=== PATIENT | male | born 1970 | race Hispanic/Latino ===

== ENCOUNTER 2017-05-08 16:04 | Emergency (ER) | payer OTHER ==
[2017-05-08 16:05] VITALS: BMI 25.0
[2017-05-08 16:14] VITALS: RESP 18; TEMP 98.1
--- NOTE | 2017-05-08 16:43 | ED PDOC ---
Arrival/HPI - General Chief Complaint: Upper Extremity Problem/Injury Time Seen by Provider: 05/08/17 16:30 Historian: Patient - History of Present Illness Time/Duration: 1 week Symptom Onset: Gradual Symptom Course: Worsening Quality: Aching Severity Level: Moderate Activities at Onset: Rest Associated Symptoms (Text): 05/08/17 16:40 Patient complains of approximately a one-week history of left triceps pain along with numbness of the bilateral upper extremities which radiates into all fingers and thumb bilaterally. There is no lower extremity pain or numbness or weakness. There is no upper extremity weakness. There is some left trapezius pain. He also complains of an intermittent headache. No difficulty with ADLs. He denies any injury or trauma. No chest pain palpitations or dyspnea. No nausea or vomiting. No diaphoresis. He has never experienced this previously. Past Medical History - Cardiac Other/Comment: low Blood pressure - Pulmonary Hx Respiratory Disorders: No - Neurological Hx Neurological Disorder: No - HEENT Hx HEENT Disorder: No - Renal Hx Renal Disorder: No - Endocrine/Metabolic Hx Endocrine Disorders: No - Hematological/Oncological Hx Blood Disorders: No - Integumentary Hx Dermatological Disorder: No - Gastrointestinal Hx Gastroesophageal Reflux: Yes - Genitourinary/Gynecological Hx Genitourinary Disorders: No - Psychiatric Hx Psychophysiologic Disorder: No Hx Substance Use: No - Past Surgical History Past Surgical History: No Previous - Surgical History Hx Cataract Extraction: Yes Family/Social History - Physician Review Nursing Documentation Reviewed: Yes Family/Social History: Unknown Family HX Smoking Status: Former Smoker (Quit smoking 6 months ago) Hx Alcohol Use: Yes Frequency of alcohol use: Daily Hx Substance Use: No Allergies/Home Meds Allergies/Adverse Reactions: Allergies sulfamethoxazole [From Bactrim] Allergy (Intermediate, Verified 05/08/17 16:15) RASH amoxicillin Allergy (Verified 05/08/17 16:15) SHORTNESS OF BREATH Penicillins Allergy (Verified 05/08/17 16:41) SHORTNESS OF BREATH trimethoprim [From Bactrim] Allergy (Verified 05/08/17 16:15) RASH Review of Systems - Physician Review All systems were reviewed & negative as marked: Yes - Review of Systems Constitutional: Normal ENT: Normal Respiratory: Normal Cardiovascular: Normal Gastrointestinal: Normal Neurological: Headache. absent: Dizziness, Focal Weakness, Gait Changes, Speech Changes, Facial Droop, Disequilibrium, Seizure Physical Exam Vital Signs Temp Pulse Resp BP Pulse Ox 05/08/17 19:13 60 18 107/74 100 05/08/17 16:09 98.1 F 71 18 157/102 H 99 Temperature: Afebrile Blood Pressure: Hypertensive Pulse: Regular Respiratory Rate: Normal Appearance: Positive for: Well-Appearing, Non-Toxic, Comfortable Pain Distress: None Mental Status: Positive for: Alert and Oriented X 3 - Systems Exam Head: Present: Atraumatic, Normocephalic Pupils: Present: PERRL Extroacular Muscles: Present: EOMI Conjunctiva: Present: Normal Mouth: Present: Moist Mucous Membranes Pharnyx: No: ERYTHEMA, EXUDATE, TONSILS ENLARGED Neck: Present: Normal Range of Motion. No: Meningeal Signs, MIDLINE TENDERNESS , Paraspinal Tenderness Respiratory/Chest: Present: Clear to Auscultation, Good Air Exchange. No: Respiratory Distress, Accessory Muscle Use Cardiovascular: Present: Regular Rate and Rhythm, Normal S1, S2. No: Murmurs Abdomen: Present: Normal Bowel Sounds. No: Tenderness, Distention, Peritoneal Signs, Rebound, Guarding Back: Present: Normal Inspection. No: CVA Tenderness, Midline Tenderness, Paraspinal Tenderness Upper Extremity: Present: Normal Inspection, Normal ROM, NORMAL PULSES, Neurovascularly Intact, Capillary Refill < 2s, Norm 2-Pt Discrimination. No: Cyanosis, Edema, Tenderness, Swelling, Erythema, Temperature Abnormalties, Deformity Lower Extremity: Present: Normal Inspection. No: Edema Neurological: Present: GCS=15, CN II-XII Intact, Speech Normal, Motor Func Grossly Intact, Normal Sensory Function, Normal Cerebellar Funct, Gait Normal Skin: Present: Warm, Dry, Normal Color. No: Rashes Psychiatric: Present: Alert, Oriented x 3, Normal Insight, Normal Concentration Medical Decision Making ED Course and Treatment: 05/08/17 18:14 EKG shows sinus bradycardia rate approximately [address] or T-wave changes - Lab Interpretations Lab Results: 05/08/17 16:45 05/08/17 16:45 Lab Results 05/08/17 16:45: Sodium 138, Potassium 4.1, Chloride 102, Carbon Dioxide 25, Anion Gap 15, BUN 16, Creatinine 1.0, Est GFR ( Amer) > 60, Est GFR (Non- Af Amer) > 60, Random Glucose 91, Calcium 9.5, Total Bilirubin 0.4, AST 30, ALT 43, Alkaline Phosphatase 76, Lactate Dehydrogenase 334, Total Creatine Kinase 69 , Troponin I < 0.01, Total Protein 6.9, Albumin 4.7, Globulin 2.2, Albumin/ Globulin Ratio 2.1 H 05/08/17 16:45: WBC 8.3, RBC 4.53, Hgb 14.2, Hct 41.0 L, MCV 90.5, MCH 31.3, MCHC 34.6, RDW 13.6, Plt Count 225, MPV 9.2, Gran % 51.4, Lymph % (Auto) 36.8 H , [place] % (Auto) 9.7 H, Eos % (Auto) 1.6, Baso % (Auto) 0.5, Gran # 4.25, Lymph # 3.0, [place] # 0.8 H, Eos # 0.1, Baso # 0.04 - RAD Interpretation Radiology Orders: 05/08/17 16:45 CERVICAL SPINE W/O CONTRAST [CT] Stat HEAD W/O CONTRAST [CT] Stat CHEST PORTABLE [RAD] Stat CT scan of the head as read by the radiologist shows no acute findings. Chest x- ray is read by the radiologist shows atelectasis. Cervical spine shows HNP Team Psychologist: Radiologist Disposition/Present on Arrival - Present on Arrival Any Indicators Present on Arrival: No History of DVT/PE: No History of Uncontrolled Diabetes: No Urinary Catheter: No History of Decub. Ulcer: No History Surgical Site Infection Following: None - Disposition Have Diagnosis and Disposition been Completed?: Yes Diagnosis: Cervical radiculopathy Disposition: HOME/ ROUTINE Disposition Time: 19:13 Patient Plan: Discharge Condition: GOOD Discharge Instructions (ExitCare): Cervical Radiculopathy (ED) Additional Instructions: Hypertension check with PMD. Must follow-up with PMD for neurology referral. Follow-up in the ER as needed. Prescriptions: Dexamethasone [Decadron] 4 mg PO DAILY #5 tab Cyclobenzaprine [Flexeril] 5 mg PO Q8 #15 tab Tramadol HCl [Ultram] 50 mg PO Q6 PRN #20 tab PRN Reason: Pain Referrals: Joel Naidu MD [Primary Care Provider] - Follow up with primary Forms: [employer] (Turkish), WORK NOTE
[2017-05-08 17:13] LABS: ALB/GLOB RATIO 2.1 (1.1-1.8); ALKALINE PHOSPHATASE 76 U/L (38-133); ALT/SGPT 43 U/L (7-56); AST/SGOT 30 U/L (15-59); BILIRUBIN,TOTAL 0.4 mg/dL (0.2-1.3); BLOOD UREA NITROGEN 16 mg/dL (7-21); CALCIUM 9.5 mg/dL (8.4-10.5); CARBON DIOXIDE 25 mmol/L (21-33); CHLORIDE 102 mmol/L (98-107); GFR AFRICAN-AMERICAN > 60; GLUCOSE,RANDOM 91 mg/dL (70-110); POTASSIUM 4.1 mmol/L (3.6-5.0); SODIUM 138 mmol/L (132-148); TOTAL PROTEIN 6.9 g/dL (5.8-8.3)
[2017-05-08 17:19] LABS: BASO # 0.04 K/mm3 (0.0-2.0); BASO % 0.5 % (0.0-3.0); EOS # 0.1 (0.0-0.7); EOS % 1.6 % (1.5-5.0); GRAN # 4.25 (1.4-6.5); GRAN % 51.4 % (50.0-68.0); LYMPH % 36.8 % (22.0-35.0); MEAN CELL VOLUME 90.5 fl (80.0-105.0); MEAN CORPUSCULAR HEMOGLOBIN 31.3 pg (25.0-35.0); MEAN CORPUSCULAR HGB CONC 34.6 g/dl (31.0-37.0); MEAN PLATELET VOLUME 9.2 fl (7.0-11.0); MONO # 0.8 (0.1-0.6); MONO % 9.7 % (1.0-6.0); RED CELL DISTRIBUTION WIDTH 13.6 % (11.5-14.5); WHITE BLOOD COUNT 8.3 10^3/ul (4.5-11.0)
[2017-05-08 17:25] LABS: TROPONIN I < 0.01 ng/mL
--- NOTE | 2017-05-08 17:38 | CT ---
PROCEDURE: CT HEAD WITHOUT CONTRAST. HISTORY: Headache COMPARISON: None available. TECHNIQUE: Axial computed tomography images were obtained through the head/brain without intravenous contrast. Radiation dose: Total exam DLP = 822.62 mGy-cm. This CT exam was performed using one or more of the following dose reduction techniques: Automated exposure control, adjustment of the mA and/or kV according to patient size, and/or use of iterative reconstruction technique. FINDINGS: HEMORRHAGE: No intracranial hemorrhage. BRAIN: [place]-white matter differentiation is preserved. There is no mass, mass effect or abnormal extra-axial fluid collection. VENTRICLES: The ventricles are normal in size, shape and configuration. CALVARIUM: The skull base and calvarium are normal. PARANASAL SINUSES: Predominantly clear. MASTOID AIR CELLS: Predominantly clear. OTHER FINDINGS: None. IMPRESSION: No acute intracranial abnormality.
--- NOTE | 2017-05-08 17:42 | RAD ---
HISTORY: pain COMPARISON: No prior. FINDINGS: LUNGS: Minor of bibasilar atelectasis and or scarring PLEURA: No significant pleural effusion identified, no pneumothorax apparent. CARDIOVASCULAR: Normal. OSSEOUS STRUCTURES: No significant abnormalities. VISUALIZED UPPER ABDOMEN: Normal. OTHER FINDINGS: None. IMPRESSION: Minor bibasilar atelectasis or scarring
--- NOTE | 2017-05-08 17:47 | CT ---
PROCEDURE: CT Cervical Spine without contrast HISTORY: Left upper extremity numbness COMPARISON: None available. TECHNIQUE: Axial computed tomography images were obtained of the cervical spine without the use of intravenous contrast. Coronal and sagittal reformatted images were created and reviewed. Radiation dose: Total exam DLP = 435.72 mGy-cm. This CT exam was performed using one or more of the following dose reduction techniques: Automated exposure control, adjustment of the mA and/or kV according to patient size, and/or use of iterative reconstruction technique. FINDINGS: VERTEBRAE: There is straightening of the cervical spine with loss of normal cervical lordosis. Vertebral alignment is normal. Vertebral height is maintained. There is no acute fracture or traumatic anterior listhesis. There is diffuse bone demineralization. The craniocervical junction is normal. There is mild degenerative osteoarthrosis at the atlantoaxial joint. DISCS/SPINAL CANAL/NEURAL FORAMINA: Evaluation of discs and spinal canal is limited on noncontrast CT examination. The spinal canal is grossly patent. Evaluation of individual disc levels demonstrate: C2-3: No large disc herniation, neural foraminal or spinal canal stenosis. C3-4: No large disc herniation, neural foraminal or spinal canal stenosis. C4-5: Disc osteophyte complex with asymmetric left uncovertebral joint hypertrophy result in mild left neural foraminal stenosis. No spinal canal stenosis. C5-6: Broad-based disc osteophyte complex, uncovertebral joint hypertrophy and mild facet arthropathy result in mild bilateral neural foraminal stenosis and mild spinal canal stenosis. C6-7: Broad-based disc osteophyte complex with superimposed left posterolateral and foraminal disc protrusions in conjunction with mild facet arthropathy resulting severe left neural foraminal stenosis. No spinal canal stenosis. C7-T1: No large disc herniation, neural foraminal or spinal canal stenosis. PARASPINAL SOFT TISSUES: The paraspinous soft tissues are normal. No prevertebral soft tissue thickening. OTHER FINDINGS: None. IMPRESSION: Mild multilevel degenerative disc disease, worse at C6-7 with a left posterolateral and foraminal disc protrusion and severe left neural foraminal stenosis. No spinal canal stenosis. At C5-6 broad-based disc osteophyte complex, uncovertebral joint hypertrophy and mild bilateral facet arthropathy result in mild spinal canal stenosis and mild bilateral neural foraminal stenosis. Straightening of the cervical spine may be positional or related to muscle spasm.
[2017-05-08 19:13] VITALS: BP 107/74; PULSE 60; O2SAT 100
--- NOTE | 2017-05-08 23:08 | CARD ---
APPROVED REPORT EKG Measurement Heart [id number] <Conclusion> Sinus bradycardia Otherwise normal ECG
== END 2017-05-08 19:25 | disposition home or self-care (01) ==
LOC: ED 16:04
DX: M54.12 Radiculopathy, cervical region (principal)